=== PATIENT | female | born 1990 | race Caucasian/White ===

== ENCOUNTER 2025-04-13 09:33 | Outpatient (AMB) | payer BC, SELFPAY ==
--- NOTE | 2025-04-13 09:42 | A.OFFPC_ITS ---
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 Intake Note: New patient visit [employer] Required: No Allergies amoxicillin Allergy (Intermediate, Verified 04/13/25 09:42) itchy Sulfa (Sulfonamide Antibiotics) Allergy (Mild, Verified 04/13/25 09:46) Redness of Skin Tobacco use date assessed: 04/13/25 Dental Screening Dental Screen Date: 04/13/25 Did you have a dental visit in the last 12 months?: Yes Did you have a dental problem in the last 6 months where you did not have access to dental care?: No Was dental information given to patient?: Patient has dentist HPI HPI Comments History of Present Illness Details The patient is a 30 year old female with a past medical history of depression presenting for physical exam Depression is stable on lexapro Labs recently done through weight loss clinic. She will upload PCOS-stable on spironolactone, loestrin [facility]. ROS CONSTITUTIONAL: Denies weight loss, fever and chills. HEENT: Denies changes in vision and hearing. RESPIRATORY: Denies SOB and cough. CV: Denies palpitations and CP GI: Denies abdominal pain, nausea, vomiting and diarrhea. : Denies dysuria and urinary frequency. MSK: Denies new myalgia and joint pain. SKIN: Denies rash and pruritus. NEUROLOGICAL: Denies headache PSYCHIATRIC: Denies recent changes in mood. PHYSICAL EXAM: GENERAL: Alert and oriented x 3. NAD EYES: EOMI. Anicteric. HENT: Moist mucous membranes. No scleral icterus. No cervical lymphadenopathy. LUNGS: Clear to auscultation bilaterally. CARDIOVASCULAR: Regular rate and rhythm. No murmur. No JVD. ABDOMEN: Soft, non-tender +bs EXTREMITIES: No edema. Non-tender. SKIN: No rashes or lesions. Warm. NEUROLOGIC: No focal neurological deficits. CN II-XII grossly intact PSYCHIATRIC: Cooperative. Appropriate mood and affect [facility] Medical History Mild recurrent major depression Left-sided face pain Surgical History No pertinent past surgical history Family History Father CVD (cardiovascular disease) Stroke Diabetes Hypertension High cholesterol Mother Diabetes Thyroid disorder Paternal Grandmother Cancer Social History Housing: House Alcohol intake: current Alcohol intake frequency: holidays/special occasions only Patient Tobacco Use Status: Never used Tobacco e-Cigarette/Vaping Use: Never Used Second Hand Smoke Exposure: No service: No Current occupational status: employed 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 1. Little interest or pleasure in doing things: not at all 2. Feeling down, depressed, or hopeless: not at all 3. Trouble falling or staying asleep, or sleeping too much: several days 4. Feeling tired or having little energy: not at all 5. Poor appetite or overeating: not at all 6. Feeling bad about yourself - or that you are a failure or have let yourself or your family down: not at all 7. Trouble concentrating on things, such as reading the newspaper or watching television: not at all 8. Moving or speaking so slowly that other people could have noticed. Or the opposite - being so fidgety or restless that you have been moving around a lot more than usual: not at all 9. Thoughts that you would be better off or of hurting yourself in some way: not at all Total score: 1 Depression Screening Interpretation: Negative Depression Screening Done: Yes 67049 - PHQ-9 Billing: Yes Source: Developed by Drs. Colin Husain, Ani Tilley, Julio Meyer and colleagues, with an educational arcelia from [employer]. Thrive Questionnaire Date Thrive assessed: 04/12/25 I am a: Patient What is your living situation today?: I have a steady place to live Within the past 12 months, did the food you bought not last and you didn't have the money to get more?: Never true Within the past 12 months, did you worry whether your food would run out before you got money to buy more?: Never true Do you have trouble paying for medicines?: I choose not to answer this question Do you have trouble getting transportation to medical appointments?: No Do you have trouble paying your heating and electricity bill?: No Do you have trouble taking care of your child, family member or friend?: No Do you have trouble with day-to-day activities such as bathing, preparing meals, shopping, managing finances, etc.?: No Are you currently unemployed and looking for a job?: No Are you interested in more education?: I choose not to answer this question Please select the resources that you would like help with: None Currently or been in a relationship where the following occur: Controlled E motionally THRIVE Score: 1 AUDIT C Alcohol Use Questionnaire (AUDIT-C) 1. How often do you have a drink containing alcohol?: 2-4 times a month 2. How many drinks containing alcohol do you have on a typical day when you are drinking?: 1 or 2 3. How often do you have six or more drinks on one occasion?: Never Total Score: 2 JAVON-7 AMB Questionnaire JAVON-7 Date JAVON - 7 assessed: 04/13/25 Feeling nervous, anxious, or on edge: 0 = Not at all Not being able to stop or control worryin = Not at all Worrying too much about different things: 0 = Not at all Trouble relaxin = Not at all Being so restless that it is hard to sit still: 0 = Not at all Becoming easily annoyed or irritable: 0 = Not at all Feeling afraid as if something awful might happen: 0 = Not at all Total JAVON-7 score (0-4 normal; 5-9 mild; 10-14 moderate; 15-21 severe): 0 Source: Developed by Drs. Colin Husain, Ani Tilley, Julio Meyer and colleagues, with an educational arcelia from [employer] JAVON-7 Assessment Billing JAVON-7 Assessment Tool: JAVON-7 Assessment 65686 Physical exam (Primary Care) Vital Signs: Last Vital Signs Temp 98.7 F 04/13/25 09:48 Pulse 73 04/13/25 09:48 Resp 12 04/13/25 09:48 BP 100/74 04/13/25 09:48 Pulse Ox 99 04/13/25 09:48 Oxygen Delivery Method Room Air 04/13/25 09:48 BMI result Body Mass Index 25.9 Tobacco/Smoking Status: Tobacco use Status Tobacco use date assessed 04/13/25 04/13/25 09:53 Patient Tobacco Use Status Never used Tobacco 04/13/25 09:55 e-Cigarette/Vaping Use Never Used 04/13/25 09:55 PHQ-9: PHQ-9 Score PHQ-9: Total score 1 04/13/25 12:54 Depression Screening Interpretation: Negative Thrive Assessment: Date of Thrive Assessment Date Thrive assessed 04/12/25 04/13/25 09:53 Currently or been in a relationship where the following occur: Controlled Emotionally Coding Level of Care Code Est Pt Prev Care 18-39y(22151) Diagnoses Encounter for physical examination Z00.00 PCOS (polycystic ovarian syndrome) E28.2 Mild recurrent major depression F33.0 Additional Codes JAVON-7 Assessment Billing - JAVON-7 Assessment Tool: JAVON-7 Assessment 12574 ([id number]) PHQ-9 - 37824 - PHQ-9 Billing: Yes ([id number]) Assessment & Plan Assessment & Plan (1) Encounter for physical examination: Code(s): Z00.00 - Encounter for general adult medical examination without abnormal fi ndings (2) PCOS (polycystic ovarian syndrome): Code(s): E28.2 - Polycystic ovarian syndrome Category: Medical (3) Mild recurrent major depression: Code(s): F33.0 - Major depressive disorder, recurrent, mild Category: Medical Plan Physical exam Interval history reviewed past medical, surgical, social reviewed Follows with production potter Depression is stable on current medication Labs done recent through weight loss clinic Medications: New azelaic acid 15% 1 appl topical BID 50 grams 3RF Refilled spironolactone 25 mg PO DAILY 90 days 90 tabs 3RF spironolactone 25 mg PO DAILY 90 tabs 3RF 90 days
[2025-04-13 09:48] VITALS: BP 100/74; PULSE 73; RESP 12; TEMP 37.1; O2SAT 99; BMI 25.9
--- OUTSIDE RECORDS SUMMARY | 2025-04-13 10:05 | XMS_ITS | Patient Health Record ---
Author Organization [facility] [address] Address [address] [place] [address] Care Team Providers [facility] Director Name Role Phone SANCHEZ AGARWAL Unavailable [phone] LINDA OSULLIVANEN Unavailable [phone] Allergies Allergen (clinical drug ingredient) Drug/Non Drug Allergy documented on EMR Reaction Allergy Type Onset Date Status Substance with sulfonamide structure and antibacterial mechanism of action (substance) Sulfa Antibiotics Unknown Drug Allergy Active Results Component Value Reference Range Notes THYROID STIMULATING HORMONE WITH REFLEX TO FREE T4 AND FREE T3 Reviewed date:02/06/2025 12:28:21 PM Interpretation: Performing Lab: Notes/Report: TSH 1.28 0.40-4.00 mcIU/mL COMPREHENSIVE METABOLIC PANE L Reviewed date:02/06/2025 12:28:38 PM Interpretation: Performing Lab: Notes/Report: Sodium 136 133-145 mmol/L Potassium 4.6 3.5-5.5 mmol/L Chloride 104 96-110 mmol/L CO2 25 21-32 mmol/L Anion Gap 7 3-11 Glucose 91 70-100 mg/dL BUN 15 5-25 mg/dL Creatinine 0.70 0.50-1.10 mg/dL eGFR 117 >=60 mL/min/1.73m2 Calculati on based on the Chronic Kidney Disease Epidemiology Collaboration (CKD-EPI) equation refit without adjustment for race. BUN/Creatinine Ratio 21.4 Calcium 9.6 8.5-10.5 mg/dL AST (SGOT) 11 10-42 unit/L ALT (SGPT) 16 10-60 unit/L Alkaline Phosphatase 70 42-121 unit/L Total Protein 7.6 6.0-8.0 g/dL Albumin 3.8 3.2-5.0 g/dL Total Bilirubin 0.5 0.0-1.4 mg/dL VITAMIN D 25 HYDROXY Reviewed date:02/06/2025 12:28:26 PM Interpretation: Performing Lab: Notes/Report: Vit D, 25-Hydroxy 30.7 30.0-80.0 ng/mL LIPID PANEL WITH REFLEX TO D IRECT LDL Reviewed date:02/06/2025 12:28:32 PM Interpretation: Performing Lab: Notes/Report: Cholesterol 184 0-200 mg/dL Triglycerides 43 0-150 mg/dL HDL 56 >=40 mg/dL LDL Calculated 119 0-100 mg/dL VLDL Cholesterol Bairon 8.6 Non HDL Chol. (LDL+VLDL) 128 <145 mg/dL Chol/HDL Ratio 3.3 0.0-4.4 CBC WITH AUTO DIFFERENTIAL Reviewed date:02/06/2025 11:20:56 AM Interpretation: Performing Lab: Notes/Report: WBC 6.1 4.8-10.8 K/mcL RBC 4.50 3.80-4.80 M/mcL Hemoglobin 14.2 11.5-16.0 g/dL Hematocrit 41.9 35.0-47.0 % MCV 92.5 79.0-98.0 FL MCH 31.3 27.0-32.0 pcg MCHC 33.9 32.0-37.0 g/dL RDW 11.9 11.0-15.0 % Platelets 294 130-400 K/mcL MPV 11.1 7.0-11.0 FL NRBC 0.0 <1.0 % NRBC Absolute 0.00 <0.10 K/mcL Neutrophils Relative 64.4 Lymphocytes Relative 26.1 Monocytes Relative 7.4 Eosinophils Relative 1.3 Basophils Relative 0.5 Immature Granulocytes Relative 0.3 Neutrophils Absolute 3.93 1.50-7.00 K/mcL Lymphocytes Absolute 1.59 1.00-5.00 K/mcL Monocytes Absolute 0.45 0.20-1.00 K/mcL Eosinophils Absolute 0.08 0.00-0.50 K/mcL Basophils Absolute 0.03 0.00-0.20 K/mcL Immature Granulocytes Absolute 0.02 0.00-0.03 K/mcL Reason For Referral No Information Medications Medication SIG (Take, Route, Frequency, Duration) Notes Start Date End Date Status Escitalopram Oxalate 20 MG TAKE 1 TABLET BY MOUTH EVERY DAY AT BEDTIME FOR 90 DAYS Oral; Duration: 90 Days Active Spironolactone 100 MG Oral; Duration: 90 Days Active Lo Loestrin Fe 1 MG-10 MCG / 10 MCG Oral; Duration: 84 Days Acti ve Problems Problem Type SNOMED Code ICD Code Onset Dates Problem Status W/U Status Risk Notes Problem Overweight (119966687) Overweight (E66.3) Active confirmed Problem Polycystic ovary syndrome (disorder) (304369547) PCOS (polycystic ovarian syndrome) (E28.2) Active confirmed Problem Depression with anxiety (F41.8) Active confirmed Vital Signs Heart Rate 67 /min 03/20/2025 Oximetry 97 % 03/20/2025 Blood pressure diastolic 76 mm Hg 03/20/2025 Height 65 in 03/20/2025 Blood pressure systolic 114 mm Hg 03/20/2025 Weight 161 lbs 03/20/2025 BMI 26.79 kg/m2 03/20/2025 Encounters Encounter Location Date Provider Diagnosis [facility] [address] [address] 02/20/2025 MEGHNA BORHOT [facility] [address] [address] 03/06/2025 MEGHNA BORHOT [facility] [address] [address] 04/03/2025 MEGHNA BORHOT [facility] [address] [address] 02/06/2025 SANCHEZ BIRKS Overweight E66.3 ; B DE 27.0-27.9,adult Z68.27 ; Nutritional counseling Z71.3 ; Depression with anxiety F41.8 and PCOS (polycystic ovarian syndrome) E28.2 [facility] [address] [address] 03/20/2025 SANCHEZ BIRKS Overweight E66.3 ; B DE 26.0-26.9,adult Z68.26 ; Depression with anxiety F41.8 ; PCOS (polycystic ovarian syndrome) E28.2 ; Nutritional counseling Z71.3 and Encounter for examination of blood pressure without abnormal findings Z01.30 [facility] [address] [address] 02/19/2025 SANCHEZ BIRKS [facility] [address] [address] 04/12/2025 SANCHEZ AGARWAL Assessments Encounter Date Diagnosis (ICD Code) Assessment Notes Treatment Notes Treatment Clinical Notes Section Notes 02/06/2025 Overweight (ICD-10 - E66.3) Sanchez is a 34-year-old female with history of obesity who presents to the office today for weight management consult. Medical history, labs, allergies, medications, and social history reviewed with the patient. Provided education on healthy diet and lifestyle which includes high-protein, low carbohydrate, high-fiber, and a variety of fruits and vegetables. Patient encouraged to exercise with emphasis on resistance training minimum 3 times per week to maintain muscle mass and cardio to burn fat. All patient questions answered. Patient will follow-up in 2 to 4 weeks for weight management. 02/06/2025: Weight 165 pounds, BMI 27.45. Seca scan completed and discussed with the patient. 42.4% of the patient's weight is fat mass amounting 69.9 pounds. She has increased amounts of muscle mass of 45.6. Visceral adiposity is increased to 1.4 with weight circumference of 34 inches. We discussed goals of diet and exercise including protein goals and hydration. Discussed importance of sleep. We discussed medication management including use of phentermine, Contrave, and GLP-1 medications. Patient has been taking berberine as of lately, discussed benefit of appetite suppression and glycemic control. Patient at this time would like to initiate regular B12 intramuscular injections for weight loss. Can consider other medications in the future as indicated or deemed necessary. Patient will otherwise follow-up in office in 4 to 6 weeks for further assessment. # Anxiety/depression: Stable mood in office, continue escitalopram 20 mg 1 tablet daily. # PCOS: Continue spironolactone 100 mg once daily, continue Loestrin OCP. Please follow-up with PCP and gynecology. Patient was reassured and welcomed to the practice. We discussed that we stress a hollistic medical approach with emphasis on lifestyle modification. Patient was informed that a healthy lifestyle with exercise and good eating habits can help reduce their risk of medical complications. Patient is explained that obesity increases their risk of diabetes, cardiovascular disease, or organ damage. We spent a lot of time discussing the relationship between food, exercise, sleep, mental health and obesity. Patient was counseled on the importance EATING local, organic food when possible. Patient was educated on clean 15 and dirty dozen. I provided information about reading books called The Food Rules by Gianni Valenzuela and Eat Fat Get Lean by Dr Live George. Self education is important in the journey for weight management. Patient was offered diagnostic testing/ SECA scale. We want to measure visceral adiposity, advanced body composition, adverse lipids, fatty acid balance, risk for heart disease and atherosclerosis, markers of inflammation and genetic susceptibility. Patient was counseled on weight management and was advised to lose weight using A. Meal Replacement Products Patient was educated on the replacement products called optifast. This is a good way of taking fixed amount of calories. It has been shown in studies to be ineffective weight management tool. This however has to be coupled with lifestyle intervention as well as laboratory data and EKG monitoring. It is impossible to know how a person will tolerate complete meal replacement. The side effects of meal replacement and weight loss could include syncopal attacks, dizziness, gallstones, potential cholecystectomy, possible heart attack and even . The benefits of meal replacement would be potential weight loss but no guarantees can be made. Meal replacement products are not covered by insurance. Once the patient has bought these products we cannot return them B. Lifestyle management which includes several strategies as below 1. Eat a low carbohydrate good fat good protein diet. Eliminate refined carbohydrates from the diet. Limit sugared beverages. Eat local organic when possible. Cook your own meals. Read food labels. Focus on healthy snacks. Portion control and food with low glycemic index 2. Exercise regularly. Try to get at least 6000 steps a day. Use a predominant to track activity level. Consider using apps like 7 minute excercise, myfitnesspal, lose it, stick as needed for self-monitoring and weight management. Consider group exercises. Consider hiring a personal service representative. Regular exercise is francis to sustainable health and prevents as a buffer against weight regain 3. Sleep is most important for healing. Try to sleep at least 6-8 hours a night. A good quality sleep needs a sleep ritual with ideal room temperature of around 68. It might help to take a shower and have no electronics in the room and sleep in a very dark room without artificial light. Start sleep routine and get up early in the morning and go to bed on time. 4. Make a social connection. Surround yourself with positive people with positive energy. Connect with friends and family. 5. Get into the habit of meditating and mindfulness while doing everything. 6. Go outside and connect with nature. C. Prescription medications Patient was educated on the use of prescription medications for medical weight loss. This is a growing list and includes phentermine, Topamax,Qsymia, contrave, belviq and saxenda, wegovy etc. All prescription medications could have side effects including but not limited to kidney stones, seizure disorder cardiac arrhythmias heart attack pancreatitis, GI effects, Etc. Patient was encouraged to read the prescription insert and have coaching with their pharmacist and make an informed decision about taking medication and know that these medications are being prescribed with good intentions and we do not know how a patient would react to the medication. Some medications are FDA approved for weight loss and there is also off label use depending on patient's inability to afford medications in an attempt to lose weight D. Behavioral counseling was done to establish a relationship between food and an mood. Patient was provided information about local counseling and psychiatry and Dr Collins at [facility] ([place]). We would like to cover regular topics and build on low glycemic eating exercise mindful eating, using yoga and meditation along with deep breathing and connecting with friends and family. E. MASS PAT reviewed, Patient's current medications were reviewed and opinion was given on medication that can cause weight gain and can be substituted F. Patient was assessed for risk with obesity including and not limiting to atherosclerosis heart disease stroke kidney disease, restrictive lung disease, irritable bowel syndrome and overall mortality. Risk of developing prediabetes diabetes and metabolic syndrome was discussed G. Therapeutic plan: We have decided to make therapeutic plan which would include choosing wisely on calories restricting portion getting active, tracking weight, getting good quality sleep and working on time management H. Patient will follow up in 4 weeks for weight management Total time spent today was 60 minutes of which greater than 50% was spent on coordinating and counseling Case discussed with collaborating physician Rodrick Burrell who reviewed the assessment and plan. Chart, medications, labs, vital signs reviewed. Dictation was accomplished with the use of [employer] voice recognition software, prone to medical misidentifications and grammatical errors. This is unintentional and the practitioner does try to identify and correct these, but some could still be present. Please do not hesitate to contact practitioner for clarification. All questions answered to patients satisfaction. Patient verbalized understanding of diagnosis and treatments explained. To call sooner prior to next visit it any questions/concerns arise. 02/06/2025 BMI 27.0-27.9,adul t (ICD-10 - Z68.27) Sanchez is a 34-year-old female with history of obesity who presents to the office today for weight management consult. Medical history, labs, allergies, medications, and social history reviewed with the patient. Provided education on healthy diet and lifestyle which includes high-protein, low carbohydrate, high-fiber, and a variety of fruits and vegetables. Patient encouraged to exercise with emphasis on resistance training minimum 3 times per week to maintain muscle mass and cardio to burn fat. All patient questions answered. Patient will follow-up in 2 to 4 weeks for weight management. 02/06/2025: Weight 165 pounds, BMI 27.45. Seca scan completed and discussed with the patient. 42.4% of the patient's weight is fat mass amounting 69.9 pounds. She has increased amounts of muscle mass of 45.6. Visceral adiposity is increased to 1.4 with weight circumference of 34 inches. We discussed goals of diet and exercise including protein goals and hydration. Discussed importance of sleep. We discussed medication management including use of phentermine, Contrave, and GLP-1 medications. Patient has been taking berberine as of lately, discussed benefit of appetite suppression and glycemic control. Patient at this time would like to initiate regular B12 intramuscular injections for weight loss. Can consider other medications in the future as indicated or deemed necessary. Patient will otherwise follow-up in office in 4 to 6 weeks for further assessment. # Anxiety/depression: Stable mood in office, continue escitalopram 20 mg 1 tablet daily. # PCOS: Continue spironolactone 100 mg once daily, continue Loestrin OCP. Please follow-up with PCP and gynecology. Patient was reassured and welcomed to the practice. We discussed that we stress a hollistic medical approach with emphasis on lifestyle modification. Patient was informed that a healthy lifestyle with exercise and good eating habits can help reduce their risk of medical complications. Patient is explained that obesity increases their risk of diabetes, cardiovascular disease, or organ damage. We spent a lot of time discussing the relationship between food, exercise, sleep, mental health and obesity. Patient was counseled on the importance EATING local, organic food when possible. Patient was educated on clean 15 and dirty dozen. I provided information about reading books called The Food Rules by Gianni Valenzuela and Eat Fat Get Lean by Dr Live George. Self education is important in the journey for weight management. Patient was offered diagnostic testing/ SECA scale. We want to measure visceral adiposity, advanced body composition, adverse lipids, fatty acid balance, risk for heart disease and atherosclerosis, markers of inflammation and genetic susceptibility. Patient was counseled on weight management and was advised to lose weight using A. Meal Replacement Products Patient was educated on the replacement products called optifast. This is a good way of taking fixed amount of calories. It has been shown in studies to be ineffective weight management tool. This however has to be coupled with lifestyle intervention as well as laboratory data and EKG monitoring. It is impossible to know how a person will tolerate complete meal replacement. The side effects of meal replacement and weight loss could include syncopal attacks, dizziness, gallstones, potential cholecystectomy, possible heart attack and even . The benefits of meal replacement would be potential weight loss but no guarantees can be made. Meal replacement products are not covered by insurance. Once the patient has bought these products we cannot return them B. Lifestyle management which includes several strategies as below 1. Eat a low carbohydrate good fat good protein diet. Eliminate refined carbohydrates from the diet. Limit sugared beverages. Eat local organic when possible. Cook your own meals. Read food labels. Focus on healthy snacks. Portion control and food with low glycemic index 2. Exercise regularly. Try to get at least 6000 steps a day. Use a predominant to track activity level. Consider using apps like 7 minute excercise, [employer], lose it, stick as needed for self-monitoring and weight management. Consider group exercises. Consider hiring a personal service representative. Regular exercise is francis to sustainable health and prevents as a buffer against weight regain 3. Sleep is most important for healing. Try to sleep at least 6-8 hours a night. A good quality sleep needs a sleep ritual with ideal room temperature of around 68. It might help to take a shower and have no electronics in the room and sleep in a very dark room without artificial light. Start sleep routine and get up early in the morning and go to bed on time. 4. Make a social connection. Surround yourself with positive people with positive energy. Connect with friends and family. 5. Get into the habit of meditating and mindfulness while doing everything. 6. Go outside and connect with nature. C. Prescription medications Patient was educated on the use of prescription medications for medical weight loss. This is a growing list and includes phentermine, Topamax,Qsymia, contrave, belviq and saxenda, wegovy etc. All prescription medications could have side effects including but not limited to kidney stones, seizure disorder cardiac arrhythmias heart attack pancreatitis, GI effects, Etc. Patient was encouraged to read the prescription insert and have coaching with their pharmacist and make an informed decision about taking medication and know that these medications are being prescribed with good intentions and we do not know how a patient would react to the medication. Some medications are FDA approved for weight loss and there is also off label use depending on patient's inability to afford medications in an attempt to lose weight D. Behavioral counseling was done to establish a relationship between food and an mood. Patient was provided information about local counseling and psychiatry and Dr Collins at [facility] ([place]). We would like to cover regular topics and build on low glycemic eating exercise mindful eating, using yoga and meditation along with deep breathing and connecting with friends and family. E. MASS PAT reviewed, Patient's current medications were reviewed and opinion was given on medication that can cause weight gain and can be substituted F. Patient was assessed for risk with obesity including and not limiting to atherosclerosis heart disease stroke kidney disease, restrictive lung disease, irritable bowel syndrome and overall mortality. Risk of developing prediabetes diabetes and metabolic syndrome was discussed G. Therapeutic plan: We have decided to make therapeutic plan which would include choosing wisely on calories restricting portion getting active, tracking weight, getting good quality sleep and working on time management H. Patient will follow up in 4 weeks for weight management Total time spent today was 60 minutes of which greater than 50% was spent on coordinating and counseling Case discussed with collaborating physician Rodirck Burrell who reviewed the assessment and plan. Chart, medications, labs, vital signs reviewed. Dictation was accomplished with the use of [employer] voice recognition software, prone to medical misidentifications and grammatical errors. This is unintentional and the practitioner does try to identify and correct these, but some could still be present. Please do not hesitate to contact practitioner for clarification. All questions answered to patients satisfaction. Patient verbalized understanding of diagnosis and treatments explained. To call sooner prior to next visit it any questions/concerns arise. 03/20/2025 Overweight (ICD-10 - E66.3) Patient is here for weight management follow-up. We focused on significance of healthy lifestyle changes. We talked about need to track steps with goal between 6000-10,000 steps daily, focus on portion control, read food labels, get adequate sleep between 7 to 8 hours, get adequate rest to the body, meditate, frequent nutritious meals including vegetables and healthy choices of lean meats, fish, and elimination of refined carbohydrates. We also talked about mindfulness and mindful eating. Particular focus was on continuing portion control, midnful eating, and exercise. Total time of 30 minutes spent with patient with greater than 50% spent on counseling and coordinating care. 02/06/2025: Weight 165 pounds, BMI 27.45. Seca scan completed and discussed with the patient. 42.4% of the patient's weight is fat mass amounting 69.9 pounds. She has increased amounts of muscle mass of 45.6. Visceral adiposity is increased to 1.4 with weight circumference of 34 inches. We discussed goals of diet and exercise including protein goals and hydration. Discussed importance of sleep. We discussed medication management including use of phentermine, Contrave, and GLP-1 medications. Patient has been taking berberine as of lately, discussed benefit of appetite suppression and glycemic control. Patient at this time would like to initiate regular B12 intramuscular injections for weight loss. Can consider other medications in the future as indicated or deemed necessary. Patient will otherwise follow-up in office in 4 to 6 weeks for further assessment. 03/20/2025: Weight 161 pounds, BMI 26.79. Seca scan completed and discussed with the patient. Patient is down 4 pounds from her last visit. On body analysis she is down 3 pounds of fat mass. Fat mass index has reduced from 11.3-10.7. She has had an approximate 1.5 reduction of her muscle mass. Visceral adiposity is reduced from 1.4 to 1.0 L. Patient is currently using daily berberine supplements and in office B12 injections. Reports no adverse side effects to these supplements. Has been improving her water intake. We discussed goals of diet, exercise, and protein. Plan is to maintain his regimen and follow-up on progress in 4 to 6 weeks. # Anxiety/depression: Stable mood in office, continue escitalopram 20 mg 1 tablet daily. # PCOS: Continue spironolactone 100 mg once daily, continue Loestrin OCP. Please follow-up with PCP and gynecology. All questions have been answered to patient's satisfaction. Patient verbalized understanding of diagnosis and treatments explained. Advised to call sooner prior to next visit it any questions/concerns arise. Case discussed with collaborating physician Ena Burrell who reviewed the assessment and plan. Chart, medications, labs, vital signs reviewed. Dictation was accomplished with the use of [employer] voice recognition software, which is prone to medical misidentifications and grammatical errors. This are unintentional and the practitioner does try to identify and correct these, but some could still be present. Please do not hesitate to contact practitioner for clarification. 03/20/2025 BMI 26.0-26.9,adul t (ICD-10 - Z68.26) Patient is here for weight management follow-up. We focused on significance of healthy lifestyle changes. We talked about need to track steps with goal between 6000-10,000 steps daily, focus on portion control, read food labels, get adequate sleep between 7 to 8 hours, get adequate rest to the body, meditate, frequent nutritious meals including vegetables and healthy choices of lean meats, fish, and elimination of refined carbohydrates. We also talked about mindfulness and mindful eating. Particular focus was on continuing portion control, midnful eating, and exercise. Total time of 30 minutes spent with patient with greater than 50% spent on counseling and coordinating care. 02/06/2025: Weight 165 pounds, BMI 27.45. Seca scan completed and discussed with the patient. 42.4% of the patient's weight is fat mass amounting 69.9 pounds. She has increased amounts of muscle mass of 45.6. Visceral adiposity is increased to 1.4 with weight circumference of 34 inches. We discussed goals of diet and exercise including protein goals and hydration. Discussed importance of sleep. We discussed medication management including use of phentermine, Contrave, and GLP-1 medications. Patient has been taking berberine as of lately, discussed benefit of appetite suppression and glycemic control. Patient at this time would like to initiate regular B12 intramuscular injections for weight loss. Can consider other medications in the future as indicated or deemed necessary. Patient will otherwise follow-up in office in 4 to 6 weeks for further assessment. 03/20/2025: Weight 161 pounds, BMI 26.79. Seca scan completed and discussed with the patient. Patient is down 4 pounds from her last visit. On body analysis she is down 3 pounds of fat mass. Fat mass index has reduced from 11.3-10.7. She has had an approximate 1.5 reduction of her muscle mass. Visceral adiposity is reduced from 1.4 to 1.0 L. Patient is currently using daily berberine supplements and in office B12 injections. Reports no adverse side effects to these supplements. Has been improving her water intake. We discussed goals of diet, exercise, and protein. Plan is to maintain his regimen and follow-up on progress in 4 to 6 weeks. # Anxiety/depression: Stable mood in office, continue escitalopram 20 mg 1 tablet daily. # PCOS: Continue spironolactone 100 mg once daily, continue Loestrin OCP. Please follow-up with PCP and gynecology. All questions have been answered to patient's satisfaction. Patient verbalized understanding of diagnosis and treatments explained. Advised to call sooner prior to next visit it any questions/concerns arise. Case discussed with collaborating physician Ena Burrell who reviewed the assessment and plan. Chart, medications, labs, vital signs reviewed. Dictation was accomplished with the use of [employer] voice recognition software, which is prone to medical misidentifications and grammatical errors. This are unintentional and the practitioner does try to identify and correct these, but some could still be present. Please do not hesitate to contact practitioner for clarification. 03/20/2025 Depression with anxiety (ICD-10 - F41.8) Patient is here for weight management follow-up. We focused on significance of healthy lifestyle changes. We talked about need to track steps with goal between 6000-10,000 steps daily, focus on portion control, read food labels, get adequate sleep between 7 to 8 hours, get adequate rest to the body, meditate, frequent nutritious meals including vegetables and healthy choices of lean meats, fish, and elimination of refined carbohydrates. We also talked about mindfulness and mindful eating. Particular focus was on continuing portion control, midnful eating, and exercise. Total time of 30 minutes spent with patient with greater than 50% spent on counseling and coordinating care. 02/06/2025: Weight 165 pounds, BMI 27.45. Seca scan completed and discussed with the patient. 42.4% of the patient's weight is fat mass amounting 69.9 pounds. She has increased amounts of muscle mass of 45.6. Visceral adiposity is increased to 1.4 with weight circumference of 34 inches. We discussed goals of diet and exercise including protein goals and hydration. Discussed importance of sleep. We discussed medication management including use of phentermine, Contrave, and GLP-1 medications. Patient has been taking berberine as of lately, discussed benefit of appetite suppression and glycemic control. Patient at this time would like to initiate regular B12 intramuscular injections for weight loss. Can consider other medications in the future as indicated or deemed necessary. Patient will otherwise follow-up in office in 4 to 6 weeks for further assessment. 03/20/2025: Weight 161 pounds, BMI 26.79. Seca scan completed and discussed with the patient. Patient is down 4 pounds from her last visit. On body analysis she is down 3 pounds of fat mass. Fat mass index has reduced from 11.3-10.7. She has had an approximate 1.5 reduction of her muscle mass. Visceral adiposity is reduced from 1.4 to 1.0 L. Patient is currently using daily berberine supplements and in office B12 injections. Reports no adverse side effects to these supplements. Has been improving her water intake. We discussed goals of diet, exercise, and protein. Plan is to maintain his regimen and follow-up on progress in 4 to 6 weeks. # Anxiety/depression: Stable mood in office, continue escitalopram 20 mg 1 tablet daily. # PCOS: Continue spironolactone 100 mg once daily, continue Loestrin OCP. Please follow-up with PCP and gynecology. All questions have been answered to patient's satisfaction. Patient verbalized understanding of diagnosis and treatments explained. Advised to call sooner prior to next visit it any questions/concerns arise. Case discussed with collaborating physician Ena Burrell who reviewed the assessment and plan. Chart, medications, labs, vital signs reviewed. Dictation was accomplished with the use of [employer] voice recognition software, which is prone to medical misidentifications and grammatical errors. This are unintentional and the practitioner does try to identify and correct these, but some could still be present. Please do not hesitate to contact practitioner for clarification. 02/06/2025 Nutritional counseling (ICD-10 - Z71.3) Sanchez is a 34-year-old female with history of obesity who presents to the office today for weight management consult. Medical history, labs, allergies, medications, and social history reviewed with the patient. Provided education on healthy diet and lifestyle which includes high-protein, low carbohydrate, high-fiber, and a variety of fruits and vegetables. Patient encouraged to exercise with emphasis on resistance training minimum 3 times per week to maintain muscle mass and cardio to burn fat. All patient questions answered. Patient will follow-up in 2 to 4 weeks for weight management. 02/06/2025: Weight 165 pounds, BMI 27.45. Seca scan completed and discussed with the patient. 42.4% of the patient's weight is fat mass amounting 69.9 pounds. She has increased amounts of muscle mass of 45.6. Visceral adiposity is increased to 1.4 with weight circumference of 34 inches. We discussed goals of diet and exercise including protein goals and hydration. Discussed importance of sleep. We discussed medication management including use of phentermine, Contrave, and GLP-1 medications. Patient has been taking berberine as of lately, discussed benefit of appetite suppression and glycemic control. Patient at this time would like to initiate regular B12 intramuscular injections for weight loss. Can consider other medications in the future as indicated or deemed necessary. Patient will otherwise follow-up in office in 4 to 6 weeks for further assessment. # Anxiety/depression: Stable mood in office, continue escitalopram 20 mg 1 tablet daily. # PCOS: Continue spironolactone 100 mg once daily, continue Loestrin OCP. Please follow-up with PCP and gynecology. Patient was reassured and welcomed to the practice. We discussed that we stress a hollistic medical approach with emphasis on lifestyle modification. Patient was informed that a healthy lifestyle with exercise and good eating habits can help reduce their risk of medical complications. Patient is explained that obesity increases their risk of diabetes, cardiovascular disease, or organ damage. We spent a lot of time discussing the relationship between food, exercise, sleep, mental health and obesity. Patient was counseled on the importance EATING local, organic food when possible. Patient was educated on clean 15 and dirty dozen. I provided information about reading books called The Food Rules by Gianni Valenzuela and Eat Fat Get Lean by Dr Live George. Self education is important in the journey for weight management. Patient was offered diagnostic testing/ SECA scale. We want to measure visceral adiposity, advanced body composition, adverse lipids, fatty acid balance, risk for heart disease and atherosclerosis, markers of inflammation and genetic susceptibility. Patient was counseled on weight management and was advised to lose weight using A. Meal Replacement Products Patient was educated on the replacement products called optifast. This is a good way of taking fixed amount of calories. It has been shown in studies to be ineffective weight management tool. This however has to be coupled with lifestyle intervention as well as laboratory data and EKG monitoring. It is impossible to know how a person will tolerate complete meal replacement. The side effects of meal replacement and weight loss could include syncopal attacks, dizziness, gallstones, potential cholecystectomy, possible heart attack and even . The benefits of meal replacement would be potential weight loss but no guarantees can be made. Meal replacement products are not covered by insurance. Once the patient has bought these products we cannot return them B. Lifestyle management which includes several strategies as below 1. Eat a low carbohydrate good fat good protein diet. Eliminate refined carbohydrates from the diet. Limit sugared beverages. Eat local organic when possible. Cook your own meals. Read food labels. Focus on healthy snacks. Portion control and food with low glycemic index 2. Exercise regularly. Try to get at least 6000 steps a day. Use a predominant to track activity level. Consider using apps like 7 minute excercise, myfitnesspal, lose it, stick as needed for self-monitoring and weight management. Consider group exercises. Consider hiring a personal service representative. Regular exercise is francis to sustainable health and prevents as a buffer against weight regain 3. Sleep is most important for healing. Try to sleep at least 6-8 hours a night. A good quality sleep needs a sleep ritual with ideal room temperature of around 68. It might help to take a shower and have no electronics in the room and sleep in a very dark room without artificial light. Start sleep routine and get up early in the morning and go to bed on time. 4. Make a social connection. Surround yourself with positive people with positive energy. Connect with friends and family. 5. Get into the habit of meditating and mindfulness while doing everything. 6. Go outside and connect with nature. C. Prescription medications Patient was educated on the use of prescription medications for medical weight loss. This is a growing list and includes phentermine, Topamax,Qsymia, contrave, belviq and saxenda, wegovy etc. All prescription medications could have side effects including but not limited to kidney stones, seizure disorder cardiac arrhythmias heart attack pancreatitis, GI effects, Etc. Patient was encouraged to read the prescription insert and have coaching with their pharmacist and make an informed decision about taking medication and know that these medications are being prescribed with good intentions and we do not know how a patient would react to the medication. Some medications are FDA approved for weight loss and there is also off label use depending on patient's inability to afford medications in an attempt to lose weight D. Behavioral counseling was done to establish a relationship between food and an mood. Patient was provided information about local counseling and psychiatry and Dr Collins at [facility] ([place]). We would like to cover regular topics and build on low glycemic eating exercise mindful eating, using yoga and meditation along with deep breathing and connecting with friends and family. E. MASS PAT reviewed, Patient's current medications were reviewed and opinion was given on medication that can cause weight gain and can be substituted F. Patient was assessed for risk with obesity including and not limiting to atherosclerosis heart disease stroke kidney disease, restrictive lung disease, irritable bowel syndrome and overall mortality. Risk of developing prediabetes diabetes and metabolic syndrome was discussed G. Therapeutic plan: We have decided to make therapeutic plan which would include choosing wisely on calories restricting portion getting active, tracking weight, getting good quality sleep and working on time management H. Patient will follow up in 4 weeks for weight management Total time spent today was 60 minutes of which greater than 50% was spent on coordinating and counseling Case discussed with collaborating physician Rodrick Burrell who reviewed the assessment and plan. Chart, medications, labs, vital signs reviewed. Dictation was accomplished with the use of [employer] voice recognition software, prone to medical misidentifications and grammatical errors. This is unintentional and the practitioner does try to identify and correct these, but some could still be present. Please do not hesitate to contact practitioner for clarification. All questions answered to patients satisfaction. Patient verbalized understanding of diagnosis and treatments explained. To call sooner prior to next visit it any questions/concerns arise. 03/20/2025 PCOS (polycystic ovarian syndrome) (ICD-10 - E28.2) Patient is here for weight management follow-up. We focused on significance of healthy lifestyle changes. We talked about need to track steps with goal between 6000-10,000 steps daily, focus on portion control, read food labels, get adequate sleep between 7 to 8 hours, get adequate rest to the body, meditate, frequent nutritious meals including vegetables and healthy choices of lean meats, fish, and elimination of refined carbohydrates. We also talked about mindfulness and mindful eating. Particular focus was on continuing portion control, midnful eating, and exercise. Total time of 30 minutes spent with patient with greater than 50% spent on counseling and coordinating care. 02/06/2025: Weight 165 pounds, BMI 27.45. Seca scan completed and discussed with the patient. 42.4% of the patient's weight is fat mass amounting 69.9 pounds. She has increased amounts of muscle mass of 45.6. Visceral adiposity is increased to 1.4 with weight circumference of 34 inches. We discussed goals of diet and exercise including protein goals and hydration. Discussed importance of sleep. We discussed medication management including use of phentermine, Contrave, and GLP-1 medications. Patient has been taking berberine as of lately, discussed benefit of appetite suppression and glycemic control. Patient at this time would like to initiate regular B12 intramuscular injections for weight loss. Can consider other medications in the future as indicated or deemed necessary. Patient will otherwise follow-up in office in 4 to 6 weeks for further assessment. 03/20/2025: Weight 161 pounds, BMI 26.79. Seca scan completed and discussed with the patient. Patient is down 4 pounds from her last visit. On body analysis she is down 3 pounds of fat mass. Fat mass index has reduced from 11.3-10.7. She has had an approximate 1.5 reduction of her muscle mass. Visceral adiposity is reduced from 1.4 to 1.0 L. Patient is currently using daily berberine supplements and in office B12 injections. Reports no adverse side effects to these supplements. Has been improving her water intake. We discussed goals of diet, exercise, and protein. Plan is to maintain his regimen and follow-up on progress in 4 to 6 weeks. # Anxiety/depression: Stable mood in office, continue escitalopram 20 mg 1 tablet daily. # PCOS: Continue spironolactone 100 mg once daily, continue Loestrin OCP. Please follow-up with PCP and gynecology. All questions have been answered to patient's satisfaction. Patient verbalized understanding of diagnosis and treatments explained. Advised to call sooner prior to next visit it any questions/concerns arise. Case discussed with collaborating physician Ena Burrell who reviewed the assessment and plan. Chart, medications, labs, vital signs reviewed. Dictation was accomplished with the use of [employer] voice recognition software, which is prone to medical misidentifications and grammatical errors. This are unintentional and the practitioner does try to identify and correct these, but some could still be present. Please do not hesitate to contact practitioner for clarification. 02/06/2025 Depression with anxiety (ICD-10 - F41.8) Sanchez is a 34-year-old female with history of obesity who presents to the office today for weight management consult. Medical history, labs, allergies, medications, and social history reviewed with the patient. Provided education on healthy diet and lifestyle which includes high-protein, low carbohydrate, high-fiber, and a variety of fruits and vegetables. Patient encouraged to exercise with emphasis on resistance training minimum 3 times per week to maintain muscle mass and cardio to burn fat. All patient questions answered. Patient will follow-up in 2 to 4 weeks for weight management. 02/06/2025: Weight 165 pounds, BMI 27.45. Seca scan completed and discussed with the patient. 42.4% of the patient's weight is fat mass amounting 69.9 pounds. She has increased amounts of muscle mass of 45.6. Visceral adiposity is increased to 1.4 with weight circumference of 34 inches. We discussed goals of diet and exercise including protein goals and hydration. Discussed importance of sleep. We discussed medication management including use of phentermine, Contrave, and GLP-1 medications. Patient has been taking berberine as of lately, discussed benefit of appetite suppression and glycemic control. Patient at this time would like to initiate regular B12 intramuscular injections for weight loss. Can consider other medications in the future as indicated or deemed necessary. Patient will otherwise follow-up in office in 4 to 6 weeks for further assessment. # Anxiety/depression: Stable mood in office, continue escitalopram 20 mg 1 tablet daily. # PCOS: Continue spironolactone 100 mg once daily, continue Loestrin OCP. Please follow-up with PCP and gynecology. Patient was reassured and welcomed to the practice. We discussed that we stress a hollistic medical approach with emphasis on lifestyle modification. Patient was informed that a healthy lifestyle with exercise and good eating habits can help reduce their risk of medical complications. Patient is explained that obesity increases their risk of diabetes, cardiovascular disease, or organ damage. We spent a lot of time discussing the relationship between food, exercise, sleep, mental health and obesity. Patient was counseled on the importance EATING local, organic food when possible. Patient was educated on clean 15 and dirty dozen. I provided information about reading books called The Food Rules by Gianni Valenzuela and Eat Fat Get Lean by Dr Live George. Self education is important in the journey for weight management. Patient was offered diagnostic testing/ SECA scale. We want to measure visceral adiposity, advanced body composition, adverse lipids, fatty acid balance, risk for heart disease and atherosclerosis, markers of inflammation and genetic susceptibility. Patient was counseled on weight management and was advised to lose weight using A. Meal Replacement Products Patient was educated on the replacement products called optifast. This is a good way of taking fixed amount of calories. It has been shown in studies to be ineffective weight management tool. This however has to be coupled with lifestyle intervention as well as laboratory data and EKG monitoring. It is impossible to know how a person will tolerate complete meal replacement. The side effects of meal replacement and weight loss could include syncopal attacks, dizziness, gallstones, potential cholecystectomy, possible heart attack and even . The benefits of meal replacement would be potential weight loss but no guarantees can be made. Meal replacement products are not covered by insurance. Once the patient has bought these products we cannot return them B. Lifestyle management which includes several strategies as below 1. Eat a low carbohydrate good fat good protein diet. Eliminate refined carbohydrates from the diet. Limit sugared beverages. Eat local organic when possible. Cook your own meals. Read food labels. Focus on healthy snacks. Portion control and food with low glycemic index 2. Exercise regularly. Try to get at least 6000 steps a day. Use a predominant to track activity level. Consider using apps like 7 minute excercise, [employer], lose it, stick as needed for self-monitoring and weight management. Consider group exercises. Consider hiring a personal service representative. Regular exercise is francis to sustainable health and prevents as a buffer against weight regain 3. Sleep is most important for healing. Try to sleep at least 6-8 hours a night. A good quality sleep needs a sleep ritual with ideal room temperature of around 68. It might help to take a shower and have no electronics in the room and sleep in a very dark room without artificial light. Start sleep routine and get up early in the morning and go to bed on time. 4. Make a social connection. Surround yourself with positive people with positive energy. Connect with friends and family. 5. Get into the habit of meditating and mindfulness while doing everything. 6. Go outside and connect with nature. C. Prescription medications Patient was educated on the use of prescription medications for medical weight loss. This is a growing list and includes phentermine, Topamax,Qsymia, contrave, belviq and saxenda, wegovy etc. All prescription medications could have side effects including but not limited to kidney stones, seizure disorder cardiac arrhythmias heart attack pancreatitis, GI effects, Etc. Patient was encouraged to read the prescription insert and have coaching with their pharmacist and make an informed decision about taking medication and know that these medications are being prescribed with good intentions and we do not know how a patient would react to the medication. Some medications are FDA approved for weight loss and there is also off label use depending on patient's inability to afford medications in an attempt to lose weight D. Behavioral counseling was done to establish a relationship between food and an mood. Patient was provided information about local counseling and psychiatry and Dr Collins at [facility] ([place]). We would like to cover regular topics and build on low glycemic eating exercise mindful eating, using yoga and meditation along with deep breathing and connecting with friends and family. E. MASS PAT reviewed, Patient's current medications were reviewed and opinion was given on medication that can cause weight gain and can be substituted F. Patient was assessed for risk with obesity including and not limiting to atherosclerosis heart disease stroke kidney disease, restrictive lung disease, irritable bowel syndrome and overall mortality. Risk of developing prediabetes diabetes and metabolic syndrome was discussed G. Therapeutic plan: We have decided to make therapeutic plan which would include choosing wisely on calories restricting portion getting active, tracking weight, getting good quality sleep and working on time management H. Patient will follow up in 4 weeks for weight management Total time spent today was 60 minutes of which greater than 50% was spent on coordinating and counseling Case discussed with collaborating physician Rodrick Burrell who reviewed the assessment and plan. Chart, medications, labs, vital signs reviewed. Dictation was accomplished with the use of [employer] voice recognition software, prone to medical misidentifications and grammatical errors. This is unintentional and the practitioner does try to identify and correct these, but some could still be present. Please do not hesitate to contact practitioner for clarification. All questions answered to patients satisfaction. Patient verbalized understanding of diagnosis and treatments explained. To call sooner prior to next visit it any questions/concerns arise. 02/06/2025 PCOS (polycystic ovarian syndrome) (ICD-10 - E28.2) Sanchez is a 34-year-old female with history of obesity who presents to the office today for weight management consult. Medical history, labs, allergies, medications, and social history reviewed with the patient. Provided education on healthy diet and lifestyle which includes high-protein, low carbohydrate, high-fiber, and a variety of fruits and vegetables. Patient encouraged to exercise with emphasis on resistance training minimum 3 times per week to maintain muscle mass and cardio to burn fat. All patient questions answered. Patient will follow-up in 2 to 4 weeks for weight management. 02/06/2025: Weight 165 pounds, BMI 27.45. Seca scan completed and discussed with the patient. 42.4% of the patient's weight is fat mass amounting 69.9 pounds. She has increased amounts of muscle mass of 45.6. Visceral adiposity is increased to 1.4 with weight circumference of 34 inches. We discussed goals of diet and exercise including protein goals and hydration. Discussed importance of sleep. We discussed medication management including use of phentermine, Contrave, and GLP-1 medications. Patient has been taking berberine as of lately, discussed benefit of appetite suppression and glycemic control. Patient at this time would like to initiate regular B12 intramuscular injections for weight loss. Can consider other medications in the future as indicated or deemed necessary. Patient will otherwise follow-up in office in 4 to 6 weeks for further assessment. # Anxiety/depression: Stable mood in office, continue escitalopram 20 mg 1 tablet daily. # PCOS: Continue spironolactone 100 mg once daily, continue Loestrin OCP. Please follow-up with PCP and gynecology. Patient was reassured and welcomed to the practice. We discussed that we stress a hollistic medical approach with emphasis on lifestyle modification. Patient was informed that a healthy lifestyle with exercise and good eating habits can help reduce their risk of medical complications. Patient is explained that obesity increases their risk of diabetes, cardiovascular disease, or organ damage. We spent a lot of time discussing the relationship between food, exercise, sleep, mental health and obesity. Patient was counseled on the importance EATING local, organic food when possible. Patient was educated on clean 15 and dirty dozen. I provided information about reading books called The Food Rules by Gianni Valenzuela and Eat Fat Get Lean by Dr Live George. Self education is important in the journey for weight management. Patient was offered diagnostic testing/ SECA scale. We want to measure visceral adiposity, advanced body composition, adverse lipids, fatty acid balance, risk for heart disease and atherosclerosis, markers of inflammation and genetic susceptibility. Patient was counseled on weight management and was advised to lose weight using A. Meal Replacement Products Patient was educated on the replacement products called optifast. This is a good way of taking fixed amount of calories. It has been shown in studies to be ineffective weight management tool. This however has to be coupled with lifestyle intervention as well as laboratory data and EKG monitoring. It is impossible to know how a person will tolerate complete meal replacement. The side effects of meal replacement and weight loss could include syncopal attacks, dizziness, gallstones, potential cholecystectomy, possible heart attack and even . The benefits of meal replacement would be potential weight loss but no guarantees can be made. Meal replacement products are not covered by insurance. Once the patient has bought these products we cannot return them B. Lifestyle management which includes several strategies as below 1. Eat a low carbohydrate good fat good protein diet. Eliminate refined carbohydrates from the diet. Limit sugared beverages. Eat local organic when possible. Cook your own meals. Read food labels. Focus on healthy snacks. Portion control and food with low glycemic index 2. Exercise regularly. Try to get at least 6000 steps a day. Use a predominant to track activity level. Consider using apps like 7 minute excercise, [employer], lose it, stick as needed for self-monitoring and weight management. Consider group exercises. Consider hiring a personal service representative. Regular exercise is francis to sustainable health and prevents as a buffer against weight regain 3. Sleep is most important for healing. Try to sleep at least 6-8 hours a night. A good quality sleep needs a sleep ritual with ideal room temperature of around 68. It might help to take a shower and have no electronics in the room and sleep in a very dark room without artificial light. Start sleep routine and get up early in the morning and go to bed on time. 4. Make a social connection. Surround yourself with positive people with positive energy. Connect with friends and family. 5. Get into the habit of meditating and mindfulness while doing everything. 6. Go outside and connect with nature. C. Prescription medications Patient was educated on the use of prescription medications for medical weight loss. This is a growing list and includes phentermine, Topamax,Qsymia, contrave, belviq and saxenda, wegovy etc. All prescription medications could have side effects including but not limited to kidney stones, seizure disorder cardiac arrhythmias heart attack pancreatitis, GI effects, Etc. Patient was encouraged to read the prescription insert and have coaching with their pharmacist and make an informed decision about taking medication and know that these medications are being prescribed with good intentions and we do not know how a patient would react to the medication. Some medications are FDA approved for weight loss and there is also off label use depending on patient's inability to afford medications in an attempt to lose weight D. Behavioral counseling was done to establish a relationship between food and an mood. Patient was provided information about local counseling and psychiatry and Dr Collins at [facility] ([place]). We would like to cover regular topics and build on low glycemic eating exercise mindful eating, using yoga and meditation along with deep breathing and connecting with friends and family. E. MASS PAT reviewed, Patient's current medications were reviewed and opinion was given on medication that can cause weight gain and can be substituted F. Patient was assessed for risk with obesity including and not limiting to atherosclerosis heart disease stroke kidney disease, restrictive lung disease, irritable bowel syndrome and overall mortality. Risk of developing prediabetes diabetes and metabolic syndrome was discussed G. Therapeutic plan: We have decided to make therapeutic plan which would include choosing wisely on calories restricting portion getting active, tracking weight, getting good quality sleep and working on time management H. Patient will follow up in 4 weeks for weight management Total time spent today was 60 minutes of which greater than 50% was spent on coordinating and counseling Case discussed with collaborating physician Rodrick Burrell who reviewed the assessment and plan. Chart, medications, labs, vital signs reviewed. Dictation was accomplished with the use of [employer] voice recognition software, prone to medical misidentifications and grammatical errors. This is unintentional and the practitioner does try to identify and correct these, but some could still be present. Please do not hesitate to contact practitioner for clarification. All questions answered to patients satisfaction. Patient verbalized understanding of diagnosis and treatments explained. To call sooner prior to next visit it any questions/concerns arise. 03/20/2025 Nutritional counseling (ICD-10 - Z71.3) Patient is here for weight management follow-up. We focused on significance of healthy lifestyle changes. We talked about need to track steps with goal between 6000-10,000 steps daily, focus on portion control, read food labels, get adequate sleep between 7 to 8 hours, get adequate rest to the body, meditate, frequent nutritious meals including vegetables and healthy choices of lean meats, fish, and elimination of refined carbohydrates. We also talked about mindfulness and mindful eating. Particular focus was on continuing portion control, midnful eating, and exercise. Total time of 30 minutes spent with patient with greater than 50% spent on counseling and coordinating care. 02/06/2025: Weight 165 pounds, BMI 27.45. Seca scan completed and discussed with the patient. 42.4% of the patient's weight is fat mass amounting 69.9 pounds. She has increased amounts of muscle mass of 45.6. Visceral adiposity is increased to 1.4 with weight circumference of 34 inches. We discussed goals of diet and exercise including protein goals and hydration. Discussed importance of sleep. We discussed medication management including use of phentermine, Contrave, and GLP-1 medications. Patient has been taking berberine as of lately, discussed benefit of appetite suppression and glycemic control. Patient at this time would like to initiate regular B12 intramuscular injections for weight loss. Can consider other medications in the future as indicated or deemed necessary. Patient will otherwise follow-up in office in 4 to 6 weeks for further assessment. 03/20/2025: Weight 161 pounds, BMI 26.79. Seca scan completed and discussed with the patient. Patient is down 4 pounds from her last visit. On body analysis she is down 3 pounds of fat mass. Fat mass index has reduced from 11.3-10.7. She has had an approximate 1.5 reduction of her muscle mass. Visceral adiposity is reduced from 1.4 to 1.0 L. Patient is currently using daily berberine supplements and in office B12 injections. Reports no adverse side effects to these supplements. Has been improving her water intake. We discussed goals of diet, exercise, and protein. Plan is to maintain his regimen and follow-up on progress in 4 to 6 weeks. # Anxiety/depression: Stable mood in office, continue escitalopram 20 mg 1 tablet daily. # PCOS: Continue spironolactone 100 mg once daily, continue Loestrin OCP. Please follow-up with PCP and gynecology. All questions have been answered to patient's satisfaction. Patient verbalized understanding of diagnosis and treatments explained. Advised to call sooner prior to next visit it any questions/concerns arise. Case discussed with collaborating physician Ena Burrell who reviewed the assessment and plan. Chart, medications, labs, vital signs reviewed. Dictation was accomplished with the use of [employer] voice recognition software, which is prone to medical misidentifications and grammatical errors. This are unintentional and the practitioner does try to identify and correct these, but some could still be present. Please do not hesitate to contact practitioner for clarification. 03/20/2025 Encounter for examination of blood pressure without abnormal findings (ICD-10 - Z01.30) Patient is here for weight management follow-up. We focused on significance of healthy lifestyle changes. We talked about need to track steps with goal between 6000-10,000 steps daily, focus on portion control, read food labels, get adequate sleep between 7 to 8 hours, get adequate rest to the body, meditate, frequent nutritious meals including vegetables and healthy choices of lean meats, fish, and elimination of refined carbohydrates. We also talked about mindfulness and mindful eating. Particular focus was on continuing portion control, midnful eating, and exercise. Total time of 30 minutes spent with patient with greater than 50% spent on counseling and coordinating care. 02/06/2025: Weight 165 pounds, BMI 27.45. Seca scan completed and discussed with the patient. 42.4% of the patient's weight is fat mass amounting 69.9 pounds. She has increased amounts of muscle mass of 45.6. Visceral adiposity is increased to 1.4 with weight circumference of 34 inches. We discussed goals of diet and exercise including protein goals and hydration. Discussed importance of sleep. We discussed medication management including use of phentermine, Contrave, and GLP-1 medications. Patient has been taking berberine as of lately, discussed benefit of appetite suppression and glycemic control. Patient at this time would like to initiate regular B12 intramuscular injections for weight loss. Can consider other medications in the future as indicated or deemed necessary. Patient will otherwise follow-up in office in 4 to 6 weeks for further assessment. 03/20/2025: Weight 161 pounds, BMI 26.79. Seca scan completed and discussed with the patient. Patient is down 4 pounds from her last visit. On body analysis she is down 3 pounds of fat mass. Fat mass index has reduced from 11.3-10.7. She has had an approximate 1.5 reduction of her muscle mass. Visceral adiposity is reduced from 1.4 to 1.0 L. Patient is currently using daily berberine supplements and in office B12 injections. Reports no adverse side effects to these supplements. Has been improving her water intake. We discussed goals of diet, exercise, and protein. Plan is to maintain his regimen and follow-up on progress in 4 to 6 weeks. # Anxiety/depression: Stable mood in office, continue escitalopram 20 mg 1 tablet daily. # PCOS: Continue spironolactone 100 mg once daily, continue Loestrin OCP. Please follow-up with PCP and gynecology. All questions have been answered to patient's satisfaction. Patient verbalized understanding of diagnosis and treatments explained. Advised to call sooner prior to next visit it any questions/concerns arise. Case discussed with collaborating physician Ena Burrell who reviewed the assessment and plan. Chart, medications, labs, vital signs reviewed. Dictation was accomplished with the use of [employer] voice recognition software, which is prone to medical misidentifications and grammatical errors. This are unintentional and the practitioner does try to identify and correct these, but some could still be present. Please do not hesitate to contact practitioner for clarification. Plan Of Treatment Pending Test Test Name Order Date LIPID PANEL, STANDARD 02/06/2025 COMPREHENSIVE METABOLIC PANEL 02/06/2025 CBC (INCLUDES DIFF/PLT) 02/06/2025 TSH W/REFLEX TO FT4 02/06/2025 VITAMIN D,25-OH,TOTAL,IA 02/06/2025 Next Appt Details Provider Name:SANCHEZ STEFANO , 05/22/2025 08:00:00 AM, [address] [facility], [facility] [address], [place], [address], Insurance Providers Payer Name Payer Address Payer Phone Subscriber Number Group Number Insured Name Patient Relationship to Insured Coverage Start Date Coverage End Date [facility] [address] [place] [phone] [id number] SANCHEZ BARRAGAN Self - patient is the insured Medications Administered Medication Instructions Date of Administration Dosage Notes MICC B12 INJECTION 02/20/2025 1 mg MICC B12 INJECTION 03/06/2025 1 mg MICC B12 INJECTION 03/20/2025 1 mL MICC B12 INJECTION 04/03/2025 1 mg Medical (General) History Medical History History ICD Code pcos anxiety
== END 2025-04-13 10:10 | disposition home or self-care (01) ==
LOC: HO.HMCFM 09:34
PROVIDERS: PCP Internal Medicine; Visit Provider Internal Medicine
DX: Z00.00 Encounter for general adult medical examination without abnormal findings (principal); E28.2 Polycystic ovarian syndrome; F33.0 Major depressive disorder, recurrent, mild

== ENCOUNTER → 2025-04-13 09:33 | Outpatient (BNVA) | payer BC, SELFPAY | PROVIDERS: PCP Internal Medicine; Visit Provider Internal Medicine | DX: Z00.00 Encounter for general adult medical examination without abnormal findings (principal); E28.2 Polycystic ovarian syndrome; F33.0 Major depressive disorder, recurrent, mild; Z79.899 Other long term (current) drug therapy; Z13.30 Encounter for screening examination for mental health and behavioral disorders, unspecified; Z13.31 Encounter for screening for depression | CPT/HCPCS: 96127 ==